=== PATIENT | female | born 1950 | race Caucasian/White ===

== ENCOUNTER 2017-09-18 10:22 | Inpatient (IN) | payer MEDICARE, OTHER ==
[~2017-09-18] VITALS: Ht 172.7 cm; Wt 80.5 kg
[2017-09-18] VITALS (711 sets, daily range): BP systolic 96–134; BP diastolic 62–78; PULSE 54–105; TEMP 97–97.5; O2SAT 82–99
[2017-09-18 11:06] LABS: BASO # 0.1 (0.0-0.2); BASO % 1.2 % (0.0-2.0); EOS # 0.1 (0.0-0.7); EOS % 3.4 % (0-4.0); GRAN # 2.3 (1.4-6.5); GRAN % 56.3 % (42.2-75.2); HEMATOCRIT 47.3 % (37.0-47.0); HEMOGLOBIN 16.2 g/dl (12.5-16.0); LYMPH # 1.1 (1.2-3.4); LYMPH % 27.6 % (20.0-51.0); MEAN CELL VOLUME 95 fl (80.0-100.0); MEAN CORPUSCULAR HEMOGLOBIN 33 pg (27.0-31.0); MEAN CORPUSCULAR HGB CONC 34 g/dl (33.0-37.0); MEAN PLATELET VOLUME 10.1 fl (7.4-10.4); MONO # 0.5 (0.1-0.6); MONO % 11.3 % (1.7-9.3); PLATELET COUNT 179 K/mm3 (130-400); RED BLOOD COUNT 4.97 M/mm3 (4.10-5.30); REDCELL DISTRIBUTION WIDTH-CV 13.3 % (11.5-14.5)
[2017-09-18] MEDS ORDERED: ULTRAM 50MG TAB50 MG PO (11:07)
[2017-09-18] MEDS ORDERED: NEURONTIN100 MG/CAP PO (11:09)
[2017-09-18] MEDS ORDERED: XANAX .25M0.25 MG/TA PO (11:10)
[2017-09-18] MEDS ORDERED: TAMBOCOR50 MG PO (11:11)
[2017-09-18 11:12] LABS: PROTHROMBIN TIME 11.3 SECONDS (9.7-12.8)
[2017-09-18] MEDS ORDERED: LOPRESSOR 550 MG/TAB PO (11:12)
[2017-09-18 11:15] LABS: ALANINE AMINOTRANSFERASE 46 U/L (9-52); ALBUMIN 4.1 gm/dL (3.5-5.0); ALKALINE PHOSPHATASE 113 U/L (50-136); ANION GAP 13 mmol/L (7-16); AST,SGOT 41 U/L (15-37); BILIRUBIN,TOTAL 0.8 mg/dL (0.0-1.0); BLOOD UREA NITROGEN 15 mg/dL (7-17); CALCIUM 9.8 mg/dL (8.4-10.2); CARBON DIOXIDE 28 mmol/L (22-30); CHLORIDE 103 mmol/L (98-107); CREATININE, serum 0.69 mg/dL (0.52-1.25); GLUCOSE 76 mg/dL (74-106); PARTIAL THROMBOPLASTIN TIME 34.1 SECONDS (26.0-37.0); POTASSIUM 3.8 mmol/L (3.4-5.0); SODIUM 144 mmol/L (137-145); TOTAL PROTEIN 6.7 gm/dL (6.4-8.2)
[2017-09-18 11:27] LABS: TROPONIN-I < 0.012 ng/mL (0.000-0.034)
[2017-09-18] MEDS ORDERED: ASPIRIN 81M81 MG/TA2 PO (11:37)
[2017-09-18] MEDS ORDERED: VITAMIN C (12:35)
[2017-09-18 13:33] LABS: COLLECTION METHOD CLEAN CATCH
[2017-09-18 13:40] LABS: PH 7 (5-8); SQUAMOUS EPITHELIAL 0-2 /hpf; URINE APPEARANCE Clear; URINE BACTERIA None Seen /hpf; URINE BILIRUBIN Negative (NEGATIVE); URINE BLOOD Negative (NEGATIVE); URINE COLOR Straw; URINE GLUCOSE Negative (NEGATIVE); URINE KETONE Negative (NEGATIVE); URINE LEUKOCYTE ESTERASE Negative (NEGATIVE); URINE NITRATE Negative (NEGATIVE); URINE PROTEIN(semi-quant) Negative (NEGATIVE); URINE RBC None Seen /hpf; URINE UROBILINOGEN Negative (NEGATIVE); URINE WBC 0-2 /hpf
[2017-09-18] MEDS ORDERED: XANAX 0.5MG0.5 MG PO (20:01)
[2017-09-19] VITALS (985 sets, daily range): BP systolic 94–129; BP diastolic 61–82; PULSE 53–109; TEMP 97.1–97.8; O2SAT 81–99
[2017-09-19 05:38] LABS: BASO % 0.5 % (0.0-2.0); EOS # 0.1 (0.0-0.7); EOS % 1.8 % (0-4.0); GRAN # 1.8 (1.4-6.5); GRAN % 44.6 % (42.2-75.2); HEMATOCRIT 42.5 % (37.0-47.0); HEMOGLOBIN 14.7 g/dl (12.5-16.0); LYMPH # 1.7 (1.2-3.4); LYMPH % 42.6 % (20.0-51.0); MEAN CELL VOLUME 95 fl (80.0-100.0); MEAN CORPUSCULAR HEMOGLOBIN 33 pg (27.0-31.0); MEAN CORPUSCULAR HGB CONC 35 g/dl (33.0-37.0); MEAN PLATELET VOLUME 10.2 fl (7.4-10.4); MONO # 0.4 (0.1-0.6); MONO % 10.2 % (1.7-9.3); PLATELET COUNT 171 K/mm3 (130-400); RED BLOOD COUNT 4.49 M/mm3 (4.10-5.30); REDCELL DISTRIBUTION WIDTH-CV 13.2 % (11.5-14.5)
[2017-09-19 06:02] LABS: CALCIUM 8.7 mg/dL (8.4-10.2); CHOLESTEROL RISK RATIO 2.8; CREATININE, serum 0.57 mg/dL (0.52-1.25); POTASSIUM 3.4 mmol/L (3.4-5.0)
[2017-09-19 06:13] LABS: TROPONIN-I 0.023 ng/mL (0.000-0.034)
[2017-09-19] MEDS ORDERED: TAMBOCOR50 MG PO (16:08)
[2017-09-19] MEDS ORDERED: ELIQUIS 5MG PO (16:08)
== END 2017-09-19 18:20 | disposition home or self-care (01) | DRG 310 ==
LOC: COL.ER 10:22 → ICU 11:10
PROVIDERS: Family Medicine
DX: I48.91 Unspecified atrial fibrillation (principal); M54.5 Low back pain; F41.9 Anxiety disorder, unspecified; I44.0 Atrioventricular block, first degree; R32 Unspecified urinary incontinence
CPT/HCPCS: 99223-AI; 99233-AI; 99239; G0378; J1650; J7030; J7050

== ENCOUNTER 2017-09-22 10:07 | Day surgery (SDC) | payer MEDICARE, OTHER ==
[~2017-09-22] VITALS: Ht 175.4 cm; Wt 80.0 kg
[2017-09-22] VITALS (7 sets, daily range): BP systolic 85–133; BP diastolic 49–94; PULSE 57–97; TEMP 97.9
[~2017-09-22 10:07] MED LIST: ASPIRIN 81M81 MG/TA2 PO; ELIQUIS 5MG PO; LOPRESSOR 550 MG/TAB PO; NEURONTIN100 MG/CAP PO; TAMBOCOR50 MG PO; ULTRAM 50MG TAB50 MG PO; VITAMIN C; XANAX .25M0.25 MG/TA PO; XANAX 0.5MG0.5 MG PO
[2017-09-22 10:46] LABS: INR 1.5 (0.8-3.0)
[2017-09-22] MEDS ORDERED: NEURONTIN300 MG/CAP PO (10:47)
[2017-09-22] MEDS ORDERED: ELIQUIS 5MG PO (10:48)
[2017-09-22] MEDS ORDERED: LOPRESSOR 550 MG/TAB PO (10:48)
[2017-09-22 10:51] LABS: POTASSIUM 3.7 mmol/L (3.4-5.0)
[2017-09-22] MEDS ORDERED: XANAX .25M0.25 MG/TA PO (11:00)
[2017-09-22] MEDS ORDERED: VITAMIN D31000 I1 PO (11:05)
[2017-09-22] MEDS ORDERED: TAMBOCOR 1100 MG/TAB PO (11:06)
[2017-09-22] MEDS ORDERED: ULTRAM 50MG TAB50 MG PO (11:06)
[2017-09-22 11:26] LABS: THYROID STIMULATING HORMONE 3.86 uIU/mL (0.465-4.680)
== END 2017-09-22 14:10 | disposition home or self-care (01) ==
LOC: COL.CAR 10:07
PROVIDERS: Internal Medicine Interventional Cardiology
DX: I48.0 Paroxysmal atrial fibrillation (principal); I34.0 Nonrheumatic mitral (valve) insufficiency; I10 Essential (primary) hypertension; Z79.01 Long term (current) use of anticoagulants
CPT/HCPCS: J7030

== ENCOUNTER → 2021-05-30 | Outpatient (CLI) | payer MEDICARE, OTHER ==
[~2021-05-30] MED LIST changes: +NEURONTIN300 MG/CAP PO; +TAMBOCOR 1100 MG/TAB PO; +VITAMIN D31000 I1 PO
== END ==
LOC: MC.RAD 11:00
DX: N64.89 Other specified disorders of breast (principal)

== ENCOUNTER 2022-03-10 12:06 | Outpatient (CLI) | payer MEDICARE, OTHER ==
--- NOTE | 2022-02-10 12:56 | NUR ---
PT CANCELLED DUE TO FAMILY
[2022-03-10] VITALS (7 sets, daily range): BP systolic 120–165; BP diastolic 83–97; PULSE 60–66; TEMP 97.9
[~2022-03-10] VITALS: Ht 170.2 cm; Wt 77.6 kg
[~2022-03-10 12:06] MED LIST changes: +OSCAL 500 TAB500 MG PO; +TUMS500 MG PO
--- NOTE | 2022-03-10 15:35 | NUR ---
DC instructions reviewed with pt. She c/o feeling very stiff throughout back due to laying and positioning during and after procedure, and reports long hx of back pain and stiffness. She is able to transfer self from bed to wheelchair with standby assist. She has tolerated PO without issue. Bandaid over puncture site remains clean, dry and intact. She is assisted out to friend's car with belongings.
== END 2022-03-10 15:35 | disposition home or self-care (01) ==
LOC: COL.RAD 12:06
DX: M54.41 Lumbago with sciatica, right side (principal); M54.42 Lumbago with sciatica, left side; G89.29 Other chronic pain
CPT/HCPCS: Q9966